=== PATIENT | female | born 1985 | race Two or more races ===

== ENCOUNTER 2017-12-02 18:43 | Emergency (ER) | payer OTHER ==
[2017-12-02 19:00] VITALS: BP 109/70; PULSE 84; TEMP 98; BMI 24.8
--- NOTE | 2017-12-02 21:49 | PDOC ---
History of Present Illness - General Chief Complaint: Pain Stated Complaint: ABD PAIN/HERNIA Time Seen by Provider: 12/02/17 21:35 History Source: Patient - History of Present Illness Initial Comments: 12/02/17 21:44 32 year old female c/o abdominal wall hernia x 6 years after twin . patient reports that today noted to have increasing bulge. denies vomiting, constipation, diarrhea, rectal bleeding + flatus. denies fever/ chills reports regular BMS/ Past History - Past Medical History Allergies/Adverse Reactions: Allergies Allergy/AdvReac Type Severity Reaction Status Date / Time diphenhydramine Allergy Verified 12/02/17 19:00 [From Benadryl] Home Medications: Ambulatory Orders Cholecalciferol (Vitamin D3) [Vitamin D3] 1,000 unit PO DAILY 12/02/17 Cyanocobalamin (Vitamin B-12) [Vitamin B12] 2,500 mcg PO DAILY 12/02/17 Folic Acid 1 mg PO DAILY 12/02/17 COPD: No - Immunization History Immunization Up to Date: No - Suicide/Smoking/Psychosocial Hx Smoking History: Never smoked Have you smoked in the past 12 months: No Information on smoking cessation initiated: No Hx Alcohol Use: No Drug/Substance Use Hx: No Substance Use Type: None Review of Systems - Review of Systems Able to Perform ROS?: Yes Is the patient limited Bulgarian proficient: No ABD/GI: Yes: Other (hernia) *Physical Exam - Vital Signs Last Vital Signs Temp Pulse Resp BP Pulse Ox 98.0 F 84 16 109/70 100 12/02/17 18:57 12/02/17 18:57 12/02/17 18:57 12/02/17 18:57 12/02/17 18:57 - Physical Exam General Appearance: Yes: Appropriately Dressed Respiratory/Chest: positive: Lungs Clear, Normal Breath Sounds Cardiovascular: positive: Regular Rhythm, Regular Rate Gastrointestinal/Abdominal: positive: Normal Bowel Sounds, Soft, Hernia ( reducible abdominal wall hernia, no abdominal tenderness). negative: Tender Progress Note - Progress Note Progress Note: Abdominal hernia P: reducible. will refer to to surgery outpatient. strict return precautions reviewed with patient. *DC/Admit/Observation/Transfer Diagnosis at time of Disposition: Abdominal wall hernia - Discharge Dispostion Disposition: HOME - Referrals Referrals: Shahid Woods PA [Primary Care Provider] - Yamilex Estrada MD [Staff Physician] - Call tomorrow - Patient Instructions Printed Discharge Instructions: Ventral Hernia Additional Instructions: please follow up with a surgeon as soon as possible. return immediately to the emergency department if hernia is not reducible, vomiting, or severe abdominal pain. - Post Discharge Activity Forms/Work/School Notes: Back to Work
== END 2017-12-02 21:55 | disposition home or self-care (01) ==
LOC: JER 18:43
DX: K46.9 Unspecified abdominal hernia without obstruction or gangrene (principal)
CPT/HCPCS: 99282-25